=== PATIENT | female | born 1945 | race Caucasian/White ===

== ENCOUNTER 2017-01-14 17:06 | Emergency (ER) | payer MEDICARE, BC ==
--- NOTE | 2017-01-15 16:11 | ER ---
ADMIT: 01/14/2017 RM/LOC: ER [facility] MR#: [id number] [facility] [address] [place] [id number] [place] [address] [place] [address] [address] Emergency Room Report SEX: F AGE: 71 : 1945 DATE: 01/14/2017 ADDENDUM: A 71-year-old white female with glioblastoma coming in after spiking a fever. She has no fever here. White count 4.9, absolute neutrophil count 2.9. Chemistry, lactic, INR, procal, and chest x-ray are negative. She is cultured up. She is not septic. I spoke with Dr. Jeff Ramirez at [facility] where she is getting her treatment for high-grade glioblastoma. At this time, he would recommend Levaquin 500 for 5 days, which will start and then they will follow up with her. CONDITION ON DISCHARGE: Serious but stable. Davis Charlton MD/ mackenzie JOB #: [id number] CC: Davis Charlton MD, Attending Physician Vikki Pappas MD, Family Physician
== END 2017-01-14 20:45 | disposition home or self-care (01) ==
LOC: ER 17:06
DX: C71.9 Malignant neoplasm of brain, unspecified (principal); R53.1 Weakness; Z90.710 Acquired absence of both cervix and uterus; Z90.49 Acquired absence of other specified parts of digestive tract; Z88.6 Allergy status to analgesic agent; Z79.899 Other long term (current) drug therapy